=== PATIENT | female | born 1975 | race Caucasian/White ===

== ENCOUNTER 2019-08-17 16:34 | Emergency (ER) | payer SELFPAY ==
[2019-08-17 16:49] VITALS: BP 132/68; PULSE 60; TEMP 97.9; BMI 25.7
--- NOTE | 2019-08-17 17:27 | PDOC ---
History of Present Illness - General Chief Complaint: Laceration Stated Complaint: LACERATION Time Seen by Provider: 08/17/19 17:13 History Source: Patient Exam Limitations: No Limitations - History of Present Illness Initial Comments: 08/17/19 17:22 Patient here status post evulsion laceration to her left distal fifth digit. Was cutting chicken slipped and excised approximately 2 cm x 1 cm area of the pad of her left fifth digit. No nail involvement, no other injury. Tetanus updated 6 years ago 08/17/19 17:26 Occurred: reports: just prior to arrival Severity: reports: mild, moderate Pain Location: reports: upper extremity (Left fifth digit tip) Modifying Factors: improves with: None Past History - Travel Traveled outside of the country in the last 30 days: No Close contact w/someone who was outside of country & ill: No - Past Medical History Allergies/Adverse Reactions: Allergies Allergy/AdvReac Type Severity Reaction Status Date / Time No Known Allergies Allergy Verified 08/17/19 16:46 Home Medications: Ambulatory Orders Escitalopram Oxalate [Lexapro -] 10 mg PO DAILY 08/17/19 - Psycho Social/Smoking Cessation Hx Smoking History: Never smoked Review of Systems - Review of Systems Able to Perform ROS?: Yes Is the patient limited Occitan proficient: Yes Constitutional: Yes: Symptoms Reported, See HPI. No: Fever HEENTM: No: Symptoms Reported Integumentary: Yes: Symptoms Reported, See HPI All Other Systems: Reviewed and Negative *Physical Exam - Vital Signs Last Vital Signs Temp Pulse Resp BP Pulse Ox 97.9 F 60 16 132/68 99 08/17/19 16:48 08/17/19 16:48 08/17/19 16:48 08/17/19 16:48 08/17/19 16:48 - Physical Exam General Appearance: Yes: Nourished, Appropriately Dressed, Apparent Distress, Mild Distress HEENT: positive: ZULLY, Normal ENT Inspection, TMs Normal, Pharynx Normal Respiratory/Chest: positive: Lungs Clear Musculoskeletal: positive: Normal Inspection Extremity: positive: Normal Capillary Refill, Normal Inspection, Normal Range of Motion Integumentary: positive: Normal Color, Dry, Warm, Other (2 x 1 cm laceration to volar aspect of left fifth digit, no nailbed involvement. Is full-thickness avulsion with no true active bleeding. Has full range of motion of finger, neurovascular intact to distal digit.) Neurologic: positive: strip picker II-XII NML intact, Fully Oriented, Alert, Normal Mood/ Affect, Normal Response, Motor Strength 5/5 Procedures - Laceration/Wound Repair Left Volar Finger Wound Length: to 2.5 cm Wound's Depth, Shape: superficial, flap Irrigated w/ Saline: Yes Betadine Prep: Yes Suture Size/Type: other (Gelfoam applied to wound with good hemostasis achieved. ) Sterile Dressing Applied: Yes Splint Applied: Yes ED Progress Note - Progress Note Progress Note: 08/17/19 17:25 Avulsion laceration left fifth digit, dressed with Gelfoam and splint. Discharge - Discharge Information Problems reviewed: Yes Clinical Impression/Diagnosis: Finger laceration Qualifiers: Encounter type: initial encounter Finger: little finger Damage to nail status: without damage Foreign body presence: without foreign body Laterality: left Qualified Code(s): S61.217A - Laceration without foreign body of left little finger without damage to nail, initial encounter Disposition: HOME - Admission No - Follow up/Referral - Patient Discharge Instructions Patient Printed Discharge Instructions: DI for Laceration Repair -- Finger, DI for Laceration Repair Additional Instructions: Rest, elevate, avoid strenuous activity or heavy lifting until healed Leave dressing on for the next 48 hours, Then may remove outer Telfa dressing gently and wash area with soap and water. Careful not to remove Gelfoam/white bottom layer while changing dressing and washing hand gently Reapply dressing daily for the next 5 days On day #6 keep the wound protected and cover as needed until Gelfoam dressing fall away allowing wound to start to dry May use Tylenol or Motrin for pain relief Your tetanus/pertussis/diphtheria booster was updated today - Post Discharge Activity Work/Back to School Note: Back to Work
== END 2019-08-17 18:31 | disposition home or self-care (01) ==
LOC: JERFT 16:34
PROC: 0HQGXZZ Repair Left Hand Skin, External Approach (ICD-10-PCS; principal; 2019-08-17)
DX: S61.217A Laceration without foreign body of left little finger without damage to nail, initial encounter (principal); W26.0XXA Contact with knife, initial encounter; Y93.G1 Activity, food preparation and clean up; Y92.89 Other specified places as the place of occurrence of the external cause
CPT/HCPCS: 99282-25